=== PATIENT | male | born 1945 | race Caucasian/White ===

== ENCOUNTER 2016-08-20 17:26 | Emergency (ER) | payer OTHER, MEDICARE ==
[~2016-08-20] VITALS: Ht 177.8 cm; Wt 99.3 kg
[~2016-08-20 17:26] MED LIST: ACETAMINOPHEN325 M2 PO; ADULT LOW DOSE81 MG PO; ALBUTEROL0.09 MG/A1 INH; AMLODIPINE BESYL5 M1 PO; AMMONIUM LACTATE 12% TOP; ANTIVERT25 MG PO; ATORVASTATIN CA40 MG PO; AUGMENTIN 875 M1 TAB PO; BACTRIM DS 8001 TAB PO; BUPROPION HCL200 M2 PO; BUPROPION300 MG PO; CARVEDILOL12.5 M1 PO; CEPHALEXIN500 MG PO; DOXYCYCLINE HY100 M4 PO; ECOTRIN81 MG PO; ELIMITE5% TOP; GABAPENTIN300 MG PO; HYDRODIURIL 2525 MG PO; HYDROXYZINE HCL25 MG PO; JARDIANCE10 MG PO; KEFLEX 250MG C250 MG PO; KEFLEX500 MG PO; LANSOPRAZOLE30 MG PO; LIORESAL 10MG T10 MG PO; LIPITOR80 MG PO; LISINOPRIL10 MG PO; LITHIUM CARBON150 MG PO; LITHIUM CARBON300 M3 PO; LITHIUM CARBON450 M1 PO; LITHIUM CARBON450 MG PO; LORAZEPAM0.5 MG PO; MAG-OX 400400 MG PO; METFORMIN HCL1000 M1 PO; METFORMIN HYD1000 MG PO; MIRALAX17 GM PO; MOTRIN 400 MG400 MG PO; NEURONTIN300 M1 PO; NEURONTIN300 MG PO; NITROSTAT0.4 M1 SL; NORVASC 5MG TAB5 MG PO; OLANZAPINE15 MG PO; OLANZAPINE20 M1 PO; OMEPRAZOLE40 M1 PO; PANTOPRAZOLE SO40 MG PO; PERCOCET 325 MG1 TA2 PO; PERCOCET 5-3251 EACH PO; PIOGLITAZONE30 MG PO; PREVACID 30MG30 MG PO; PROAIR HFA0.09 MG/Ac INH; QUETIAPINE FUM100 MG PO; ROXICODONE5 MG PO; SEROQUEL50 MG PO; SERTRALINE HCL100 MG PO; SERTRALINE HYDR50 MG PO; Senokot S PO; TESSALON PERLE100 MG PO; TRAMADOL50 MG PO; TRIAMCINOL0.1 %/453 TOP; TRIAMCINOLONE A15 G2 TOP; VICODIN 5-3001 EACH PO; WELLBUTRIN XL300 M2 PO; ZITHROMAX Z-PA250 M1 PO
--- NOTE | 2016-08-20 18:03 | ED GENERAL ADULT ---
History of Present Illness General Chief Complaint: Fall Stated Complaint: BIBA FOR FALL Source: patient Exam Limitations: no limitations Vital Signs & Intake/Output Vital Signs & Intake/Output Vital Signs Date Time Temp Pulse Resp B/P Pulse O2 O2 Flow FiO2 Ox Delivery Rate 08/20 1946 98.3 60 18 126/59 97 Room Air 08/20 1727 99.3 78 18 137/66 93 Room Air ED Intake and Output 08/21 0000 08/20 1200 Intake Total Output Total Balance Patient 219 lb Weight Allergies Coded Allergies: NO KNOWN ALLERGIES (09/25/15) Reconcile Medications Acetaminophen 325 MG TABLET 2 TAB PO Q6H PAIN (Reported) Albuterol Sulfate (Proair Hfa) 0.09 MG/Actuation TYLER 2 PUFF INH Q6H PRN WHEEZE (Reported) Amlodipine Besylate 5 MG TABLET 1 TAB PO DAILY HEART (Reported) Aspirin (Adult Low Dose Aspirin EC) 81 MG TABLET.DR 1 TAB PO DAILY HEART HEALTH (Reported) Atorvastatin (Atorvastatin Calcium) 80 MG TAB 80 MG PO QHS CHOLESTEROL ( Reported) Bupropion HCl (Wellbutrin XL) 300 MG TAB.ER.24H 1 TAB PO QAM MENTAL HEALTH ( Reported) Carvedilol 12.5 MG TABLET 1 TAB PO BID HEART/BP (Reported) Doxycycline Hyclate 100 MG TABLET 1 TAB PO BID rash Gabapentin (Neurontin) 300 MG CAPSULE 1 CAP PO TID NEUROPATHY (Reported) Hydrochlorothiazide (Hydrodiuril 25 MG Tab) 25 MG TABLET 1 TAB PO DAILY BP ( Reported) Hydrocodone/Acetaminophen (Vicodin 5-300 MG Tablet) 1 EACH TABLET 1-2 TAB PO Q6P PRN pain Lisinopril 10 MG TABLET 10 MG PO DAILY BLOOD PRESSURE [place] Carbonate ([place] Carbonate ER) 450 MG TABLET.ER 1 TAB PO BID MENTAL HEALTH (Reported) Meclizine (Antivert) 25 MG TABLET 1 TAB PO Q6P PRN DIZZINESS Metformin HCl 1,000 MG TABLET 1 TAB PO BID DIABETES (Reported) Nitroglycerin (Nitrostat) 0.4 MG TAB.SUBL 1 TAB SL QMIN PRN CHEST PAIN ( Reported) 1st sign of attack; may repeat every 5 minutes until relief; if pain persists after 3 tablets in 15 minutes, prompt medical att Olanzapine 20 MG TABLET 1 TAB PO QPM MENTAL HEALTH (Reported) Omeprazole 40 MG CAPSULE.DR 1 CAP PO DAILY GI (Reported) PIOGLITAZONE HCL (Pioglitazone HCl) 30 MG TABLET 1 TAB PO DAILY DIABETES ( Reported) Sertraline HCl 100 MG TABLET 1 TAB PO DAILY MENTAL HEALTH (Reported) Triamcinolone Acetonide 15 GM CREAM..G. 1 MICAELA TOP BID rash apply to affected area(s) Triage Note: PT TO ROOM 12 [facility] S/P TRIPPED AND FELL ON A STREET. PT C/O BILAT ANKLE PAIN 7/10, SKIN ABRASIONS TO R SIDE OF FACE AND NOSE, +HEADSTRIKE, PT DENIES LOC. PT UNSURE OF BLOOD THINNERS. VSS. Triage Nurses Notes Reviewed? yes HPI: 70 year old man with an extensive medical and psychiatric history seen for evaluation after sustaining a fall. He was reportedly discharged from [facility] earlier today after being evaluated from suicidal ideation and discharged on an "orange med you put under your tongue". He reports walking home the the snf he was at in [place] when he crossed the road and his foot caught the edge of the curb causing him to sustain a mechanical fall. He reports a headstrike and does not recall the events of the fall, and does not remember if he lost consciousness. He is now complaining of pain in his face, left sided chest pain, low back pain, and bilateral ankle pain with swelling. Currently he is pleasant and appropriate and denies any suicidal/ homicidal ideation or visual/auditory hallucinations. Additionally he denies any headache, fever, chills, shortness of breath, nausea, vomiting, diarrhea. (RAMANA RUIZ,FAM) Past History Travel History Traveled to [place] past 21 day No Medical History Any Pertinent Medical History? 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 . Hx Contributory? No (FAM BOLES MD) Review of Systems Review of Systems Constitutional: Reports: see HPI. (FAM BOLES MD) Review of Systems EENTM: Reports: see HPI. Respiratory: Reports: no symptoms. Cardiovascular: Reports: see HPI, chest pain. GI: Reports: no symptoms. Genitourinary: Reports: no symptoms. Musculoskeletal: Reports: see HPI, joint pain. Skin: Reports: no symptoms. Neurological/Psychological: Reports: no symptoms. Hematologic/Endocrine: Reports: no symptoms. Immunologic/Allergic: Reports: no symptoms. All Other Systems: Reviewed and Negative (SHANTE RUIZ,RAF East) Physical Exam Physical Exam General Appearance: well developed/nourished, alert, awake Comments: General - well developed, well nourished obese elderly man in no acute distress HEENT - NCAT, PERRLA, EOMI, anicteric sclera, no palpable crepitus to scalp or neck, no step offs, multiple minor abrasions to face, large abrasion to nose CVS - S1, S2 w/o m/g/r, mild left chest wall tenderness Resp - CTA bilaterally GI - Soft, nontender, nondistended, bowel sounds intact Neuro - Awak and alert, oriented to person/place/time, CN II - XII grossly intact, strength 5/5 x4, sensation intact, gait impaired secondary to pain Ext - multiple minor abrasion, normal pulses, 1+ bilateral lower extremity edema , moderate tenderness to bilateral ankles without deformity Core Measures ACS in differential dx? No CVA/TIA Diagnosis: No Severe Sepsis Present: No Septic Shock Present: No (FAM BOLES MD) Physical Exam Head: evidence of injury (ABRASION TO NOSE) Eyes: Bilateral: PERRL, EOMI. Ears, Nose, Throat: normal pharynx, normal ENT inspection Neck: normal inspection, supple, full range of motion Respiratory: normal breath sounds, chest non-tender, no respiratory distress, lungs clear Cardiovascular: regular rate/rhythm, normal peripheral pulses Gastrointestinal: normal bowel sounds, soft, non-tender, no organomegaly Back: normal inspection, normal range of motion, muscle spasm, no vertebral tenderness Extremities: normal inspection, normal capillary refill, normal range of motion, no edema, FULL ROM, NONTENDER TO PALP Neurologic/Psych: no motor/sensory deficits, awake, alert, oriented x 3, normal mood/affect Skin: intact, normal color Lymphatic: no anterior cervical guerda (SHANTE RUIZ,RAF East) Progress Differential Diagnoses I considered the following diagnoses in my evaluation of the patient: minor trauma, deconditioning Plan of Care: Orders Procedure Date/time Status EKG 08/20 1753 Active Current Medications Sig/Millie Start time Last Medication Dose Stop Time Status Admin Ibuprofen 800 MG ONCE ONE 08/20 1800 CAN (Motrin) 08/20 1801 Initial ED EKG: normal axis, normal intervals, normal p-waves, normal sinus rhythm Comments: Given patients history of present illness and reported history of suicidal ideation is it reasonable to persue a trauma evaluation. CT Head/Neck was not pursued as patient is not complaining of any head pain and has a normal neurologic examination. Multiple films were obtained to rule out any fracture. EKG was obtained. Motrin was given for pain relief. (RAMANA RUIZ,FAM) Differential Diagnoses I considered the following diagnoses in my evaluation of the patient: Diagnostic Imaging: Viewed by Me: Radiology Read. Discussed w/RAD: Radiology Read. Hand-Off Endorsed To: MILLY RUIZ,RIANA Isaac Endorsed Time: 1899 Pending: Xray Comments: Patient got up and ambulated in the emergency department. Patient states that both of his ankles and his back continues to hurt and he felt very weak. We'll obtain x-rays and give him Motrin. (SHANTE RUIZ,RAF East) Differential Diagnoses I considered the following diagnoses in my evaluation of the patient: Radiology Impression: LS spine - no acute fx, full report below. , r ankle - subtle abnormality at talus... full report below. , l ankle - no fx... full report below. CXR Impression: no acute abnormality, no infiltrates, normal size heart, normal mediastinum Comments: PATIENT: LINDSEY CHRISTIAN PRESENT AGE: 70 PATIENT ACCOUNT NO: [id number] : 46 LOCATION: [facility] ORDERING PHYSICIAN: FAM BOLES MD SERVICE DATE: 08/20/16 EXAM TYPE: RAD - XRY-CHEST XRAY, PA AND LATERAL EXAMINATION: XR CHEST CLINICAL INFORMATION: Trauma. Evaluate for rib fracture. COMPARISON: Chest x-ray 08/31/2014. TECHNIQUE: Three views of the chest were obtained. FINDINGS: The lungs are well-expanded and clear without focal airspace consolidation. No pleural effusions or pneumothoraces are identified. There is prominence of the bilateral hilar regions. This could reflect prominence of the bilateral pulmonary arterial vasculature. Cardiomediastinal contours are within normal limits. Soft tissues are unremarkable. No acute osseous abnormality is identified. IMPRESSION: No acute pulmonary process. No visible, grossly displaced bilateral rib fractures. However, please note that a dedicated rib series with be more sensitive in evaluating for rib fractures. If clinical concern for rib fractures persist, consider correlation with a dedicated rib series. DICTATED BY: MIKEY ALMENDAREZ MD DATE/TIME DICTATED:08/20/161856 HUMAN RESOURCE ASSISTANT:QUIRINO DATE/TIME TRANSCRIBED:08/20/161856 CONFIDENTIAL, DO NOT COPY WITHOUT APPROPRIATE AUTHORIZATION. <Electronically signed in Other Vendor System> SIGNED BY: MIKEY ALMENDAREZ MD 08/20/161901 PATIENT: LINDSEY CHRISTIAN PRESENT AGE: 70 PATIENT ACCOUNT NO: [id number] : 46 LOCATION: [facility] ORDER[facility] PHYSICIAN: FAM BOLES MD SERVICE DATE: 08/20/16 EXAM TYPE: RAD - XRY-TWO VIEW LEFT ANKLE EXAMINATION: XR ANKLE, LEFT CLINICAL INFORMATION: Left ankle pain following trauma. COMPARISON: None . TECHNIQUE: AP and lateral views of the left ankle. FINDINGS: Multiple views of the left ankle demonstrate moderate soft tissue swelling surrounding the left ankle joint. Well-corticated osseous densities inferior to the medial malleolus could reflect small osteophytes or accessory ossicles. The ankle mortise is intact. No acute fracture of the left ankle is identified. There are mild degenerative changes involving the left ankle joint, the talonavicular joint as well as the navicular-cuneiform joint. IMPRESSION: Moderate soft tissue swelling surrounding the left ankle, without evidence of acute fracture or dislocation. Well-corticated osseous densities inferior to the medial malleolus are favored to represent small osteophytes or accessory ossicles. Degenerative changes of the left ankle as noted above. DICTATED BY: MIKEY ALMENDAREZ MD DATE/TIME DICTATED:08/20/161858 HUMAN RESOURCE ASSISTANT:QUIRINO DATE/TIME TRANSCRIBED:08/20/161858 CONFIDENTIAL, DO NOT COPY WITHOUT APPROPRIATE AUTHORIZATION. <Electronically signed in Other Vendor System> SIGNED BY: MIKEY ALMENDAREZ MD 08/20/161904 PATIENT: LINDSEY CHRISTIAN PRESENT AGE: 70 PATIENT ACCOUNT NO: [id number] : 46 LOCATION: [facility] ORDER[facility] PHYSICIAN: FAM BOLES MD SERVICE DATE: 08/20/16 EXAM TYPE: RAD - XRY-TWO VIEW RIGHT ANKLE EXAMINATION: XR ANKLE, RIGHT CLINICAL INFORMATION: Right ankle pain following trauma. COMPARISON: None. TECHNIQUE: AP and lateral of the right ankle. FINDINGS: Moderate soft tissue swelling surrounding the right ankle joint. Incidental note is made of a 6 mm osseous density anterior to the talus, best visualized on lateral view of the right ankle. This calcific density is indeterminate and could reflect a soft tissue calcification although an avulsion fracture fragment cannot be excluded entirely excluded. There is also questionable cortical step-off along the neck of the talus. Fracture within this region cannot be entirely excluded. There are mild degenerative changes involving the right ankle joint. No significant anterior or posterior ankle joint effusion is identified. IMPRESSION: A 6 mm osseous density anterior to the talus, best visualized on lateral view of the right ankle. Additionally, there is a questionable cortical step-off along the neck of the talus. Fracture within this region cannot be entirely excluded. Correlate with physical exam and point tenderness within this region. Moderate soft tissue swelling surrounding the right ankle joint. DICTATED BY: MIKEY ALMENDAREZ MD DATE/TIME DICTATED:08/20/161901 HUMAN RESOURCE ASSISTANT:QUIRINO DATE/TIME TRANSCRIBED:08/20/161901 CONFIDENTIAL, DO NOT COPY WITHOUT APPROPRIATE AUTHORIZATION. <Electronically signed in Other Vendor System> SIGNED BY: MIKEY ALMENDAREZ MD 08/20/161908 PATIENT: LINDSEY CHRISTIAN PRESENT AGE: 70 PATIENT ACCOUNT NO: [id number] : 46 LOCATION: [facility] ORDERING PHYSICIAN: FAM BOLES MD SERVICE DATE: 08/20/16 EXAM TYPE: RAD - XRY-LUMBOSACRAL SPINE AP & LAT EXAMINATION: XR LUMBOSACRAL SPINE CLINICAL INFORMATION: Low back pain after trauma COMPARISON: CT of the abdomen and pelvis from 11/19/2014 TECHNIQUE: AP and lateral views of the lumbosacral spine were obtained. 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 There is grade 1 retrolisthesis of L2 on L3, stable. There is a mild dextroconvex lower thoracic/upper lumbar scoliosis. No convincing interval compression deformities. Multilevel spondylosis is fairly similar to 2015. Heavy atherosclerotic calcification is noted. The bowel gas pattern is nonobstructive. The SI joints appear unremarkable. 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 Multilevel spondylosis and mild scoliosis. No convincing acute osseous abnormality. DICTATED BY: MARIEL BREEN MD DATE/TIME DICTATED:08/20/161905 HUMAN RESOURCE ASSISTANT:QUIRINO DATE/TIME TRANSCRIBED:08/20/161905 CONFIDENTIAL, DO NOT COPY WITHOUT APPROPRIATE AUTHORIZATION. <Electronically signed in Other Vendor System> SIGNED BY: MARIEL BREEN MD 08/20/161912 (MILLY RUIZ,RIANA Isaac) Departure Departure Disposition: STILL A PATIENT Condition: Stable Clinical Impression Primary Impression: Fall (on)(from) sidewalk curb, initial encounter Referrals: SAGAR RUIZ,JANA East (PCP/Family) Departure Forms: Customer Survey General Discharge Information (RAMANA RUIZ,FAM) Resident Co-Sign Statement Statement: ED Attending supervision documentation- [X] I saw and evaluated the patient. I have also reviewed all the pertinent lab results and diagnostic results. I agree with the findings and the plan of care as documented in the Resident's documentation. [X] I have reviewed the ED Record and agree with the Resident's documentation. [] Additions or exceptions (if any) to the Resident's note and plan are summarized below: [Personally seen and evaluated this patient. I have read the above note and agree with what has been written. Patient was walking home after being discharged from a different facility when he tripped over a curb and fell forward and hit his face on the ground. There was no loss of consciousness. Patient comes in for evaluation. Patient is complaining of throbbing pain to both of his ankles as well as his low back and his chest. The pain due to both his ankles is throbbing in nature and he rates it as 5 out of 10. The pain increases with ambulation. There is no radiation. The pain was low back is throbbing in nature and is constant. There is no radiation. The pain increases with ambulation. There is no weakness or numbness. There is no incontinence of bowel or bladder. The pain to his chest is aching in nature and is constant. It increases with inspiration. It is in the left anterior portion of his chest. There is no radiation. He rates it as 4 out of 10.] (SHANTE RUIZ,RAF East) PA/BOW REHAIRER Co-Sign Statement Statement: ED Attending supervision documentation- [] I saw and evaluated the patient. I have also reviewed all the pertinent lab results and diagnostic results. I agree with the findings and the plan of care as documented in the PA's/BOW REHAIRER's documentation. [x] I have reviewed the ED Record and agree with the PA's/BOW REHAIRER's documentation. [] Additions or exceptions (if any) to the PAs/BOW REHAIRER's note and plan are summarized below: [] (MILLY RUZI,RIANA Isaac) Critical Care Note Critical Care Note Critical Care Time: non-applicable (RAMANA RUIZ,FAM)
--- NOTE | 2016-08-20 19:02 | RADIOLOGY REPORT ---
EXAMINATION: XR CHEST CLINICAL INFORMATION: Trauma. Evaluate for rib fracture. COMPARISON: Chest x-ray 08/31/2014. TECHNIQUE: Three views of the chest were obtained. FINDINGS: The lungs are well-expanded and clear without focal airspace consolidation. No pleural effusions or pneumothoraces are identified. There is prominence of the bilateral hilar regions. This could reflect prominence of the bilateral pulmonary arterial vasculature. Cardiomediastinal contours are within normal limits. Soft tissues are unremarkable. No acute osseous abnormality is identified. IMPRESSION: No acute pulmonary process. No visible, grossly displaced bilateral rib fractures. However, please note that a dedicated rib series with be more sensitive in evaluating for rib fractures. If clinical concern for rib fractures persist, consider correlation with a dedicated rib series.
--- NOTE | 2016-08-20 19:05 | RADIOLOGY REPORT ---
EXAMINATION: XR ANKLE, LEFT CLINICAL INFORMATION: Left ankle pain following trauma. COMPARISON: None . TECHNIQUE: AP and lateral views of the left ankle. FINDINGS: Multiple views of the left ankle demonstrate moderate soft tissue swelling surrounding the left ankle joint. Well-corticated osseous densities inferior to the medial malleolus could reflect small osteophytes or accessory ossicles. The ankle mortise is intact. No acute fracture of the left ankle is identified. There are mild degenerative changes involving the left ankle joint, the talonavicular joint as well as the navicular-cuneiform joint. IMPRESSION: Moderate soft tissue swelling surrounding the left ankle, without evidence of acute fracture or dislocation. Well-corticated osseous densities inferior to the medial malleolus are favored to represent small osteophytes or accessory ossicles. Degenerative changes of the left ankle as noted above.
--- NOTE | 2016-08-20 19:09 | RADIOLOGY REPORT ---
EXAMINATION: XR ANKLE, RIGHT CLINICAL INFORMATION: Right ankle pain following trauma. COMPARISON: None. TECHNIQUE: AP and lateral of the right ankle. FINDINGS: Moderate soft tissue swelling surrounding the right ankle joint. Incidental note is made of a 6 mm osseous density anterior to the talus, best visualized on lateral view of the right ankle. This calcific density is indeterminate and could reflect a soft tissue calcification although an avulsion fracture fragment cannot be excluded entirely excluded. There is also questionable cortical step-off along the neck of the talus. Fracture within this region cannot be entirely excluded. There are mild degenerative changes involving the right ankle joint. No significant anterior or posterior ankle joint effusion is identified. IMPRESSION: A 6 mm osseous density anterior to the talus, best visualized on lateral view of the right ankle. Additionally, there is a questionable cortical step-off along the neck of the talus. Fracture within this region cannot be entirely excluded. Correlate with physical exam and point tenderness within this region. Moderate soft tissue swelling surrounding the right ankle joint.
--- NOTE | 2016-08-20 19:13 | RADIOLOGY REPORT ---
EXAMINATION: XR LUMBOSACRAL SPINE CLINICAL INFORMATION: Low back pain after trauma COMPARISON: CT of the abdomen and pelvis from 11/19/2014 TECHNIQUE: AP and lateral views of the lumbosacral spine were obtained. 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 There is grade 1 retrolisthesis of L2 on L3, stable. There is a mild dextroconvex lower thoracic/upper lumbar scoliosis. No convincing interval compression deformities. Multilevel spondylosis is fairly similar to 2015. Heavy atherosclerotic calcification is noted. The bowel gas pattern is nonobstructive. The SI joints appear unremarkable. 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 Multilevel spondylosis and mild scoliosis. No convincing acute osseous abnormality.
[2016-08-20 19:46] VITALS: BP 126/59
== END 2016-08-20 20:09 ==
LOC: ERH 17:26
DX: S09.90XA Unspecified injury of head, initial encounter (principal); W19.XXXA Unspecified fall, initial encounter
CPT/HCPCS: 72100; 73600-LT; 73600-RT; 93005; 93010

== ENCOUNTER 2017-06-28 07:09 | Emergency (ER) | payer OTHER, MEDICARE ==
[~2017-06-28] VITALS: Ht 182.9 cm; Wt 93.0 kg
[~2017-06-28 07:09] MED LIST changes: +ACTOS30 M1 PO; +ATORVASTATIN CA80 M1 PO; +BACLOFEN10 M1 PO; +HYDROCHLOROTHIA25 M1 PO; -HYDRODIURIL 2525 MG PO; -LIPITOR80 MG PO; +OXYCODONE HCL5 M1 PO; +PRINIVIL10 M1 PO; -PROAIR HFA0.09 MG/Ac INH; +PROAIR HFA8.5 GM INH
--- NOTE | 2017-06-28 08:38 | ED AMS/SEIZURE/WEAK/DIZZY ---
History of Present Illness General Chief Complaint: General Adult Stated Complaint: GENERAL WEAKNESS Source: patient, old records Exam Limitations: no limitations Vital Signs & Intake/Output Vital Signs & Intake/Output Vital Signs Date Time Temp Pulse Resp B/P B/P Pulse O2 O2 Flow FiO2 Mean Ox Delivery Rate 06/28 1155 97.7 87 16 118/72 97 Room Air 06/28 1153 97 06/28 0724 99.3 99 20 111/68 96 Room Air Allergies Coded Allergies: NO KNOWN ALLERGIES (09/25/15) Reconcile Medications Acetaminophen 325 MG TABLET 2 TAB PO Q6H PAIN (Reported) Albuterol Sulfate (Proair Hfa) 90 MCG HFA.AER.AD 2 PUF INH Q4-6 PRN PRN SHORTNESS OF BREATH (Reported) Amlodipine Besylate 5 MG TABLET 1 TAB PO DAILY HEART (Reported) Aspirin (Adult Low Dose Aspirin EC) 81 MG TABLET.DR 1 TAB PO DAILY HEART HEALTH (Reported) Atorvastatin Calcium 80 MG TABLET 1 TAB PO QPM CHOLESTEROL (Reported) Baclofen 10 MG TABLET 1 TAB PO TIDPRN PRN muscle spasm/strain Bupropion HCl (Wellbutrin XL) 300 MG TAB.ER.24H 1 TAB PO QAM MENTAL HEALTH ( Reported) Carvedilol 12.5 MG TABLET 1 TAB PO BID HEART/BP (Reported) Gabapentin (Neurontin) 300 MG CAPSULE 1 CAP PO TID NEUROPATHY (Reported) Hydrochlorothiazide 25 MG TABLET 1 TAB PO DAILY BP (Reported) Hydrocodone/Acetaminophen (Vicodin 5-300 MG Tablet) 1 EACH TABLET 1-2 TAB PO Q6P PRN pain Lisinopril (Prinivil) 10 MG TABLET 1 TAB PO DAILY BP (Reported) Burnett Carbonate (Burnett Carbonate ER) 450 MG TABLET.ER 1 TAB PO BID MENTAL HEALTH (Reported) Metformin HCl 1,000 MG TABLET 1 TAB PO BID DIABETES (Reported) Nitroglycerin (Nitrostat) 0.4 MG TAB.SUBL 1 TAB SL QMIN PRN CHEST PAIN ( Reported) 1st sign of attack; may repeat every 5 minutes until relief; if pain persists after 3 tablets in 15 minutes, prompt medical att Olanzapine 20 MG TABLET 1 TAB PO QPM MENTAL HEALTH (Reported) Omeprazole 40 MG CAPSULE.DR 1 CAP PO DAILY GI (Reported) Oxycodone HCl 5 MG TABLET 1 TAB PO Q6P PRN severe pain Pioglitazone HCl (Actos) 30 MG TABLET 1 TAB PO DAILY DIABETES (Reported) Sertraline HCl 100 MG TABLET 1 TAB PO DAILY MENTAL HEALTH (Reported) Triamcinolone Acetonide 15 GM CREAM..G. 1 MICAELA TOP BID rash apply to affected area(s) Triage Note: PT BIBA TO TRIAGE C/O GENERALIZED WEAKNESS AND FALLING. PT'S VISITING NURSE SENT PT TO ED FOR EVAL. PT DENIES ANY PAIN. Triage Nurses Notes Reviewed? yes Onset: Abrupt Duration: day(s): (1), constant Timing: recent history Injury Environment: home Severity: moderate Severity Numbers: 5 No Modifying Factors: none Associated Symptoms: DENIES HPI: 71 year old male history of hypertension, CAD, HIV, chronic hepatitis C, COPD and not on home O2, schizophrenia presents sent in by his visiting nurse for evaluation after he had a fall at 3:00 this morning and again this morning while getting out of bed. He denies any prodromal dizziness or lightheadedness. He reports a poor appetite for the past week. Patient states that he had "one small can of beer" this morning. He denies any other drug use. No chest pain abdominal pain nausea vomiting diarrhea. He's complaining of right elbow pain. He denies any shoulder or wrist or hand pain to the right arm, no leg injury or left arm injury. He denies any neck or back pain. He denies urinary urgency frequency dysuria. The patient states she's not sure if he hit his head with the fall he states he did not lose consciousness (Vj Henry) Past History Travel History Traveled to [place] past 21 day No Medical History Any Pertinent Medical History? 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 . Hx Contributory? No (Vj Henry) Review of Systems Review of Systems Constitutional: Reports: see HPI. Comments Review of systems: See HPI, All other systems negative. Constitutional, no chills no fever, no malaise no weight loss HEENT: no sore throat no congestion, no ear pain Cardiovascular: No chest pain , no palpitation Skin: no rashes, no change in skin Respiratory: No dyspnea no cough no sputum no hemoptysis GI: No nausea no vomiting, no diarrhea, no bloating/constipation : No dysuria No hematuria, no frequency Muscle skeletal: No joint pain, no back pain, no neck pain, Neurologic: , no headache Psych: No stress no depression,. Heme/endocrine: No bruising no bleeding Immunology: No lymphadenopathy (Vj Henry) Physical Exam Physical Exam General Appearance: well developed/nourished, alert, awake Comments: Well-developed well-nourished person in no acute distress HEENT: Normal EENT exam; PERRL, EOMI, no nystagmus. HEAD is atraumatic. moist mucous membranes. Neck: Supple, no lymphadenopathy, normal range of motion without pain or tenderness Back: Nontender, no CVA tenderness. Full range of motion Cardiovascular: Regular rate and rhythms no murmurs rubs or gallops, normal JVP Respiratory: Chest nontender.There were no bony deformities, no asymmetry. No respiratory distress. Patient speaking in full complete sentences. Breath sounds clear to auscultation bilaterally: NO W/R/R Abdomen: Soft, nontender nondistended, no appreciable organomegaly. Normal bowel sounds. No rebound/guarding, No appreciable enlargement of the abdominal aorta, No ascites. Extremity: No edema, full range of motion of extremities, normal and equal pulses bilaterally, 5 out of 5 strength noted to bilateral upper and lower extremities Neuro: Alert oriented x3, motor sensory normal, cranial nerves II through XII grossly intact. There were no obvious focal neurologic abnormalities. Skin: No appreciable rash on exposed skin, skin is warm and dry. Psych: Mood and affect is normal, memory and judgment is normal. Core Measures ACS in differential dx? No CVA/TIA Diagnosis No Sepsis Present: No Sepsis Focused Exam Completed? No (Coral JONES,Vj) Progress Differential Diagnosis: arrythmia, alcohol intoxication, anemia, CVA/stroke, dehydration, drug intoxication, electrolyte imbalance, hypoglycemia, intracranial Hem., intracranial mass/tumor, pneumonia, postural hypotension, presyncope, UTI/pyelo, vertebrobasilar insuff, INTOXICATION, WITHDRAWAL Plan of Care: Orders Procedure Date/time Status Add-on Test (ER Only) 06/28 1104 Active CULTURE,URINE 06/28 1041 Active URINE DRUG SCREEN FOR ER ONLY 06/28 08 Complete URINALYSIS 06/28 842 Complete TROPONIN LEVEL 06/28 842 Complete LITHIUM 06/28 842 Complete ETHANOL 06/28 842 Complete COMPREHENSIVE METABOLIC PANEL 06/28 842 Complete CBC WITHOUT DIFFERENTIAL 06/28 842 Complete Laboratory Tests 06/28/17 1041: Urine Opiates Screen 1524.00, Methadone Screen > 735 H, Barbiturate Screen < 60 , Ur Phencyclidine Scrn 6.60, Amphetamines Screen 229, U Benzodiazepines Scrn 123, Urine Cocaine Screen > 1000 H, Urine Cannabis Screen < 5.00, Urinalysis MOD H, Urine Color YEL, Urine Clarity HAZY H, Urine pH 6.0, Ur Specific [place] 1.025, Urine Protein TRACE H, Urine Ketones TRACE H, Urine Nitrite NEG , Urine Bilirubin NEG, Urine Urobilinogen 0.2, Ur Leukocyte Esterase MOD H, Ur Microscopic SEDIMENT EXAMINED, Urine RBC 3-5, Urine WBC 25-50 H, Ur Epithelial Cells MOD H, Urine Bacteria FEW H, Hyaline Casts 10-15 H, Granular Casts RARE H, Urine Mucus RARE, Urine Hemoglobin NEG, Urine Glucose NEG 06/28/17 1026: Anion Gap 19 H, Estimated GFR > 60, BUN/Creatinine Ratio 14.0, Glucose 72, Calcium 8.7, Total Bilirubin 0.2, AST 34, ALT 30, Alkaline Phosphatase 118, Troponin I < 0.01, Total Protein 7.9, Albumin 4.0, Globulin 3.9, Albumin/ Globulin Ratio 1.0 L, CBC w Diff NO MAN DIFF REQ, RBC 4.05 L, MCV 82.6, MCH 26.7 L, RDW 15.6 H, MPV 6.4 L, Gran % 32.3 L, Lymphocytes % 41.7, Monocytes % 7.1, Eosinophils % 18.6 H, Basophils % 0.3, Absolute Granulocytes 1.6, Absolute Lymphocytes 2.1, Absolute Monocytes 0.4, Absolute Eosinophils 0.9, Absolute Basophils 0, PUBS MCHC 32.3 L, Burnett < 0.2 L, Serum Alcohol 16.0 Microbiology 06/28 1041 URINE ROUT: Urine Culture - RECD Labs ordered old records reviewed patient resting in no apparent distress at this time ct abd x-rays ordered. caes d/w dr shepard. Patient ambulatory around the emergency room with steady gait by himself without the aid of a crutch cane or walker On repeat evaluation patient is ambulatory here without assistance I discussed with him at length all his lab results x-ray CAT scan findings. Advised need for stop using drugs, alcohol cessation. Return precautions were discussed at length Diagnostic Imaging: Viewed by Me: Radiology Read, CT Scan. Discussed w/RAD: Radiology Read, CT Scan. Radiology Impression: PATIENT: LINDSEY CHRISTIAN PRESENT AGE: 71 PATIENT ACCOUNT NO: [id number] : 46 LOCATION: ER ORDERING PHYSICIAN: Vj JONES SERVICE DATE: 06/28/17 EXAM TYPE: RAD - XRY-ELBOW 3 OR MORE VIEWS, R EXAMINATION: XR ELBOW, RIGHT CLINICAL INFORMATION: Fall with pain COMPARISON: None TECHNIQUE: AP, lateral, and oblique views of the right elbow. FINDINGS: There is no evidence of acute fracture or dislocation. Alignment is anatomic. Joint spaces are maintained. No elbow joint effusion. There is a 0.2 cm density in the soft tissues superficially of the antecubital fossa. This could represent a soft tissue calcification or a foreign body. IMPRESSION: No fracture or malalignment. Tiny density in the superficial soft tissues of the antecubital fossa could represent a soft tissue calcification or a foreign body. DICTATED BY: Bhaskar Medrano MD DATE/TIME DICTATED:06/28/17902 SCOURING PADS SUPERVISOR:QUIRINO DATE/TIME TRANSCRIBED:902 CONFIDENTIAL, DO NOT COPY WITHOUT APPROPRIATE AUTHORIZATION. < Electronically signed in Other Vendor System> SIGNED BY: Bhaskar Medrano MD 06/28/17907, PATIENT: LINDSEY CHRISTIAN PRESENT AGE: 71 PATIENT ACCOUNT NO: [id number] : 46 LOCATION: [facility] ORDERING PHYSICIAN: Vj JONES SERVICE DATE: 06/28/17 EXAM TYPE: CAT - CT HEAD WO IV CONTRAST EXAMINATION: CT HEAD WITHOUT CONTRAST CLINICAL INFORMATION: Fall. Hit head. Weakness. COMPARISON: 04/07/2017 TECHNIQUE: Contiguous axial imaging was performed from the skull base to vertex without intravenous contrast. DLP: 630 mGy-cm. FINDINGS: There is no evidence of acute intracranial hemorrhage or territorial infarction. No abnormal mass effect or midline shift is seen. Jose to white matter differentiation is well preserved. No extra-axial fluid collections are identified. No hydrocephalus. Proportional prominence of the ventricles and sulcal spaces is consistent with mild volume loss. There is no abnormal attenuation within the brain parenchyma. The osseous structures and soft tissues are normal. The mastoid air cells and visualized portions of the paranasal sinuses are well aerated. IMPRESSION: No acute intracranial pathology. DICTATED BY: Bhaskar Medrano MD DATE/TIME DICTATED:940 SCOURING PADS SUPERVISOR:QUIRINO DATE/TIME TRANSCRIBED:06/28/17940 CONFIDENTIAL, DO NOT COPY WITHOUT APPROPRIATE AUTHORIZATION. <Electronically signed in Other Vendor System> SIGNED BY: Bhaskar Medrano MD 06/28/17945 Initial ED EKG: none (Vj Henry) Departure Departure Time of Disposition: 1128 Disposition: HOME OR SELF CARE Condition: Stable Clinical Impression Primary Impression: Fall Secondary Impressions: Cocaine abuse Referrals: Misael RUIZ,Jose Elias [place] (PCP/Family) Additional Instructions: FOLLOW UP WITH YOUR PMD, RETURN WITH ANY CONCERNS Departure Forms: Customer Survey General Discharge Information (Vj Henry) PA/ROTATING EQUIPMENT SPECIALIST Co-Sign Statement Statement: ED Attending supervision documentation- x I saw and evaluated the patient. I have also reviewed all the pertinent lab results and diagnostic results. I agree with the findings and the plan of care as documented in the PA's/ROTATING EQUIPMENT SPECIALIST's documentation. [] I have reviewed the ED Record and agree with the PA's/ROTATING EQUIPMENT SPECIALIST's documentation. [] Additions or exceptions (if any) to the PAs/ROTATING EQUIPMENT SPECIALIST's note and plan are summarized below: [] (Romel RUIZ,Danilo)
--- NOTE | 2017-06-28 09:08 | RADIOLOGY REPORT ---
EXAMINATION: XR ELBOW, RIGHT CLINICAL INFORMATION: Fall with pain COMPARISON: None TECHNIQUE: AP, lateral, and oblique views of the right elbow. FINDINGS: There is no evidence of acute fracture or dislocation. Alignment is anatomic. Joint spaces are maintained. No elbow joint effusion. There is a 0.2 cm density in the soft tissues superficially of the antecubital fossa. This could represent a soft tissue calcification or a foreign body. IMPRESSION: No fracture or malalignment. Tiny density in the superficial soft tissues of the antecubital fossa could represent a soft tissue calcification or a foreign body.
--- NOTE | 2017-06-28 09:46 | CT SCAN REPORT ---
EXAMINATION: CT HEAD WITHOUT CONTRAST CLINICAL INFORMATION: Fall. Hit head. Weakness. COMPARISON: 04/07/2017 TECHNIQUE: Contiguous axial imaging was performed from the skull base to vertex without intravenous contrast. DLP: 630 mGy-cm. FINDINGS: There is no evidence of acute intracranial hemorrhage or territorial infarction. No abnormal mass effect or midline shift is seen. Jose to white matter differentiation is well preserved. No extra-axial fluid collections are identified. No hydrocephalus. Proportional prominence of the ventricles and sulcal spaces is consistent with mild volume loss. There is no abnormal attenuation within the brain parenchyma. The osseous structures and soft tissues are normal. The mastoid air cells and visualized portions of the paranasal sinuses are well aerated. IMPRESSION: No acute intracranial pathology.
[2017-06-28 10:50] LABS: ABSOLUTE BASOPHIL COUNT 0 /CUMM (0.0-0.2); ABSOLUTE EOSINOPHIL COUNT 0.9 /CUMM (0.0-0.7); ABSOLUTE GRANULOCYTE CT 1.6 /CUMM (1.4-6.5); ABSOLUTE LYMPH COUNT 2.1 /CUMM (1.2-3.4); ABSOLUTE MONOCYTE COUNT 0.4 /CUMM (0.10-0.60); BASOPHIL % 0.3 % (0.0-2.0); GRANULOCYTE % 32.3 % (42.2-75.2); HEMATOCRIT 33.5 % (42-52); MEAN CORPUSCULAR HGB 26.7 PG (27.0-31.0); MEAN CORPUSCULAR HGB CONC 32.3 G/DL (33.0-37.0); MEAN CORPUSCULAR VOLUME 82.6 FL (80.0-94.0); MEAN PLATELET VOLUME 6.4 FL (7.4-10.4); PLATELET COUNT 211 /CUMM (130-400); RBC DISTRIBUTION WIDTH 15.6 % (11.5-14.5); RED BLOOD CELL CT 4.05 /CUMM (4.70-6.10); WHITE BLOOD CELL COUNT 5.1 /CUMM (4.8-10.8)
[2017-06-28 10:52] LABS: EOSINOPHIL % 18.6 % (0-5)
[2017-06-28 11:03] LABS: LITHIUM < 0.2 mmol/L (0.6-1.2)
[2017-06-28 11:55] VITALS: BP 118/72
== END 2017-06-28 11:50 ==
LOC: ERH 07:09
PROVIDERS: Physician Assistant Medical
DX: F14.10 Cocaine abuse, uncomplicated (principal)
CPT/HCPCS: 73080-RT; 80307; 81001; 87086; G0480